=== PATIENT | male | born 1990 | race Asian ===

== ENCOUNTER 2017-01-09 08:24 | Emergency (ER) | payer OTHER ==
[~2017-01-09] VITALS: Ht 185.4 cm; Wt 81.6 kg
--- NOTE | 2017-01-09 08:31 | NUR ---
PATIENT TO ED DT LEFT EYE PAIN, SWELLING AND REDNESS SINCE YESTERDAY. PATIENT UNABLE TO OPEN LEFT EYE DT PAIN/ DISCOMFORT. PATIENT IS AFEBRILE. VSS
[2017-01-09] MEDS ORDERED: EYE (08:32)
--- NOTE | 2017-01-09 08:40 | NUR ---
TO ER BED 7 AWAITING MD JENNINGS,UNABLE TO DO VA AT THIS TIME
[2017-01-09] MEDS ORDERED: TETRACAINE HCL/PF 0.5% UD 2 ML BOTTLE ONE (08:44)
[2017-01-09] MEDS ORDERED: FLUORESCEIN SODIUM OPHTH 1 EA STRIP ONE (08:44)
[2017-01-09] MEDS ORDERED: TETRACAINE HCL/PF 0.5% UD 2 ML BOTTLE LEFTEYE ONE (09:00)
[2017-01-09] MEDS ORDERED: FLUORESCEIN SODIUM OPHTH 1 EA STRIP OP ONE (09:00)
[2017-01-09] MEDS ORDERED: HYDROCODONE/APAP 5/325MG 1 EACH TABLET ONE (09:13)
[2017-01-09 09:16] VITALS: BP 131/72
--- NOTE | 2017-01-09 09:16 | NUR ---
Patient discharged to home in stable condition. Written and verbal after care instructions given. Patient verbalizes understanding of instruction.
[2017-01-09] MEDS ORDERED: HYDROCODONE/APAP 5/325MG 1 EACH TABLET PO ONE (09:30)
== END 2017-01-09 09:16 | disposition home or self-care (01) ==
LOC: ER 08:27
DX: S05.02XA Injury of conjunctiva and corneal abrasion without foreign body, left eye, initial encounter (principal); X58.XXXA Exposure to other specified factors, initial encounter; Y93.89 Activity, other specified; Y92.89 Other specified places as the place of occurrence of the external cause; Y99.9 Unspecified external cause status
CPT/HCPCS: A4606; Z7610